=== PATIENT | female | born 1950 | race Caucasian/White ===

== ENCOUNTER 2018-05-07 14:50 | Outpatient (CLI) | payer MEDICARE ==
--- NOTE | 2018-05-07 16:38 | MRI ---
MRI RIGHT KNEE WITHOUT CONTRAST: Date: 05/07/18 INDICATION: History of right knee pain. COMPARISON: None. FINDINGS: There are marginal moderate osteophytes affecting all major compartments of the right knee. There is a subchondral impaction fracture involving the medial femoral condyle measuring 1.6 x 1.0 cm greatest mediolateral AP dimension respectively. There is a full thickness radial tear involving the posterio r central root of the medial meniscus with partial medial extrusion. The lateral meniscus is intact. The ACL, PCL, MCL, and LCLC are intact. The extensor mechanism is intact. There is a prominent area o f focal full thickness articular cartilage thinning involving the median patellar ridge measuring 1.1 cm on image 6 of series 4. There are multifocal areas of thinning involving the medial femoral troch danii. IMPRESSION: 1. Moderate osteoarthrosis of the right knee. 2. Subchondral impaction fracture of the medial femoral condyle. 3. Radial tear of the medial meniscus with partial medial extrusion. POS: CET
== END 2018-05-07 14:51 | disposition home or self-care (01) ==
LOC: BICMRI 14:50
PROVIDERS: ATTEND Orthopaedic Surgery
DX: M25.561 Pain in right knee (principal); M17.11 Unilateral primary osteoarthritis, right knee; S72.431A Displaced fracture of medial condyle of right femur, initial encounter for closed fracture; S83.241A Other tear of medial meniscus, current injury, right knee, initial encounter

== ENCOUNTER 2018-07-25 01:09 | Outpatient (CLI) | payer MEDICARE ==
[2018-07-25 11:38] LABS: #Basophils 0.1 thou/uL (0.0-0.2); #Eosinphils 0.2 thou/uL (0.0-0.7); #Lymphocytes 2.7 thou/uL (1.20-3.40); #Monocytes 0.6 thou/uL (0.11-0.59); %Basophils 0.8 % (0.0-1.0); %Eosinophils 3.4 % (0.0-10.0); %Lymphocytes 40.7 % (21.0-51.0); %Monocytes 8.9 % (0.0-10.0); %Neutrophils 46.3 % (42.0-75.0); Hemoglobin 12.9 g/dL (12.0-16.0); Mean Corpuscular HGB CONC 32.1 g/dL (32.0-36.0); Mean Corpuscular Hemoglobin 28.5 pg (27.0-31.0); Mean Corpuscular Volume 88.7 fL (78.0-98.0); Mean Platelet Volume 8.9 fL (7.4-10.4); Platelet Count 192 thou/uL (130-400); RBC Distribution Width 13.3 % (11.5-14.5); Red Blood Cell (RBC) Count 4.53 mill/uL (4.20-5.40); White Blood Cell (WBC) Count 6.6 thou/uL (4.8-10.8)
[2018-07-25 12:05] LABS: Anion Gap 10 mmol/L (10-20); BUN (Urea Nitrogen) 10 mg/dL (9.8-20.1); Calc. Creatinine Clearance 0 mL/min (70-130); Calcium 9.2 mg/dL (7.8-10.44); Carbon Dioxide 29 mmol/L (23-31); Chloride 101 mmol/L (98-107); Estimated GFR-MDRD 69; Glucose 93 mg/dL (80-115); Potassium 3.8 mmol/L (3.5-5.1); Sodium 136 mmol/L (136-145)
--- NOTE | 2018-07-25 16:52 | EKG ---
Test Reason : Blood Pressure : / mmHG Vent. Rate : 068 BPM Atrial Rate : 068 BPM P-R Int : 136 ms QRS Dur : 070 ms QT Int : 420 ms P-R-T Axes : 072 068 066 degrees QTc Int : 446 ms Normal sinus rhythm Normal ECG No previous ECGs available Confirmed by RAN VICENTE, DR. Anderson ([id number]) on 07/25/2018 4:51:39 PM Referred By: TANIA Confirmed By:DR. Monica TONG MD
== END 2018-07-25 01:10 | disposition home or self-care (01) ==
LOC: LABBT 01:09
PROVIDERS: ATTEND Orthopaedic Surgery
DX: Z01.818 Encounter for other preprocedural examination (principal); S83.241A Other tear of medial meniscus, current injury, right knee, initial encounter
CPT/HCPCS: 80048; 85025; 93005; 93010

== ENCOUNTER 2018-08-09 05:36 | Day surgery (SDC) | payer MEDICARE ==
[2018-07-25 10:53] VITALS: BMI 29.0
[2018-08-09] MEDS ORDERED: Bupivacaine HCl 0.5%/Epinephrine 1:200,000/PF 30 ml Vial ONE ×2 (06:39→09:40)
[2018-08-09] MEDS ORDERED: Midazolam HCl 2 mg/2 ml Vial ONE (06:48)
[2018-08-09] MEDS ORDERED: Fentanyl 100 MCG/2 ML VIAL ONE (08:19)
[2018-08-09] MEDS ORDERED: Lidocaine 2% w/Epinephrine 1:200K 20 ML VIAL ONE (09:40)
[2018-08-09] MEDS ORDERED: Ketorolac Tromethamine 30 MG/ML VIAL ONE (10:36)
[2018-08-09] MEDS ORDERED: Ondansetron PF 4 MG/2 ML Vial ONE (10:36)
[2018-08-09] MEDS ORDERED: PROPOFOL 200 MG/20 ML VIAL ONE (10:36)
--- NOTE | 2018-08-09 14:14 | OP ---
DATE OF PROCEDURE: 08/09/2018 PREOPERATIVE DIAGNOSIS: Medial meniscus tear, right knee. POSTOPERATIVE DIAGNOSIS: Medial and lateral meniscus tear, right knee. PROCEDURE PERFORMED: Arthroscopic partial medial and lateral meniscectomy. ANESTHESIA: General. ESTIMATED BLOOD LOSS: Minimal. SPECIMENS: None. DRAINS: None. COMPLICATIONS: None. DESCRIPTION OF PROCEDURE: The patient was taken to the operating room, where general anesthesia was induced. Right leg was prepped and draped in usual sterile fashion. The scope was placed in the lateral portal and probe was placed in the medial portal. Patellar joint and femoral joint were free of disease. Medial compartments had some mild degenerative changes and a large extensive tearing at most of the posterior horn of the medial meniscus. This was debrided using basket forceps and removed using 4.0 full radius resector. On the lateral compartment, a small tear of the free edge of lateral meniscus was debrided using basket forceps and smoothed using an arthroscopic shaver as well. ACL was intact. There was no arthritis in the lateral femur, but the lateral tibia had some fissures down to bone, grade 3. The knee was irrigated. The gutters were swept to make sure there were no loose bodies. The knee was then drained. Sterile dressings were applied. Job ID: [id number]
== END 2018-08-09 09:58 | disposition home or self-care (01) ==
LOC: SDC 05:36
PROVIDERS: ATTEND Orthopaedic Surgery
PROC: 0SQC4ZZ Repair Right Knee Joint, Percutaneous Endoscopic Approach (ICD-10-PCS; principal; 2018-08-09)
DX: S83.281A Other tear of lateral meniscus, current injury, right knee, initial encounter (principal); S83.241A Other tear of medial meniscus, current injury, right knee, initial encounter; M17.11 Unilateral primary osteoarthritis, right knee; Z79.899 Other long term (current) drug therapy; Z88.5 Allergy status to narcotic agent
CPT/HCPCS: J0670; J0690; J1885; J2250; J2405; J2704; J3010

== ENCOUNTER 2018-12-31 13:30 | Outpatient (CLI) | payer MEDICARE ==
--- NOTE | 2018-12-31 16:02 | MRI ---
MRI LEFT HIP WITHOUT CONTRAST: INDICATIONS: History of intractable left hip pain. COMPARISON: None. FINDINGS: There is a subchondral insufficiency fracture involving the anterior-superior aspect of the femoral h ead with surrounding marrow edema. There is moderate to severe degenerative arthrosis of the left hi p. There is a large subchondral cyst-like abnormality involving the anterior acetabulum. There is d egenerative fraying of the acetabular labrum with multiple small paralabral cysts seen along the supe rior and posterior-superior margin of the acetabulum lip. There is mild joint effusion involving the left hip joint. There is mild degenerative change of the contralateral right hip. No additional ma rrow signal abnormality is evident. The rectus femoris and hamstring origins appear within normal li mits. No trochanteric bursitis is evident. No iliopsoas bursitis is noted. There is mild muscular edema involving the adductor musculature, which may reflect a mild strain of the adductor musculature . no enlarged lymph nodes are evident. There is some slight heterogeneous material seen within the joint space, which may reflect synovial proliferation within the left hip joint. IMPRESSION: 1. Subchondral insufficiency fracture of the anterior-superior femoral head with surrounding marrow edema. 2. Moderate left hip osteoarthrosis with degenerative fraying of the acetabular labrum with paralabr al cysts. 3. Mild joint effusion of the left hip. 4. Mild degenerative changes of the right hip. 5. Mild muscular edema of the adductor musculature may reflect mild strain in the patient's attempt to compensate for the left hip pain. POS: OFF
== END 2018-12-31 13:31 | disposition home or self-care (01) ==
LOC: SCSMRI 13:30
PROVIDERS: ATTEND Orthopaedic Surgery
DX: M25.552 Pain in left hip (principal); M16.12 Unilateral primary osteoarthritis, left hip; M25.452 Effusion, left hip

== ENCOUNTER 2019-01-28 11:00 | Inpatient (IN) | payer MEDICARE ==
[2019-01-28 11:18] VITALS: BMI 29.0
[2019-02-05] MEDS ORDERED: Sodium Chloride 0.9% 100 ML ONE (06:52)
[2019-02-05] MEDS ORDERED: Tranexamic Acid 1,000 MG/10 ML VIAL ONE (06:52)
[2019-02-05] MEDS ORDERED: Acetaminophen 325 MG TAB PO PRN ×2 (07:09→08:39)
[2019-02-05] MEDS ORDERED: Zolpidem Tartrate 5 MG TAB PO PRN ×2 (07:09→08:45)
[2019-02-05] MEDS ORDERED: Fentanyl 100 MCG/2 ML VIAL SLOW IVP PRN ×2 (07:09)
[2019-02-05] MEDS ORDERED: diphenhydrAMINE 25 MG CAP PO PRN ×2 (07:09→08:45)
[2019-02-05] MEDS ORDERED: HYDROcodone/Acetaminophen 10/325 mg Tablet PO PRN ×2 (07:09)
[2019-02-05] MEDS ORDERED: Promethazine HCl 25 MG/ML VIAL IM PRN ×3 (07:09→10:06)
[2019-02-05] MEDS ORDERED: Ondansetron PF 4 MG/2 ML Vial IVP PRN ×2 (07:09→08:45)
[2019-02-05] MEDS ORDERED: Fentanyl 100 MCG/2 ML VIAL ONE ×5 (07:14→11:35)
[2019-02-05] MEDS ORDERED: Midazolam HCl 2 mg/2 ml Vial ONE (07:14)
[2019-02-05] MEDS ORDERED: Vancomycin HCl 1.5 GM in Sodium Chloride 0.9% 250 ML 300 ML IVPB SCH (07:15)
[2019-02-05] MEDS ORDERED: Lidocaine 1.5% w/Epi 1:200K 30 ML VIAL (Epid Use) ONE (07:51)
[2019-02-05] MEDS ORDERED: Naloxone HCl 0.4 mg/ml Vial IVP PRN (08:45)
[2019-02-05] MEDS ORDERED: Naloxone HCl 0.4 mg/ml Vial IV PRN (08:45)
[2019-02-05] MEDS ORDERED: traMADol HCl 50 MG TAB PO PRN ×2 (08:45)
[2019-02-05] MEDS ORDERED: Hydrocerin (Eucerin) Cream 120 gm Jar TOP PRN (08:45)
[2019-02-05] MEDS ORDERED: diphenhydrAMINE 50 MG/ML VIAL IM PRN (08:45)
[2019-02-05] MEDS ORDERED: Ketorolac Tromethamine 30 MG/ML VIAL IVP PRN (08:45)
[2019-02-05] MEDS ORDERED: Bupivacaine 0.25% 10 ML VIAL EPIDURAL PRN (08:45)
[2019-02-05] MEDS ORDERED: diphenhydrAMINE 50 MG/ML VIAL IVP PRN (08:45)
[2019-02-05] MEDS ORDERED: HYDROcodone/Acetaminophen 5/325 mg Tablet PO PRN (08:45)
[2019-02-05] MEDS ORDERED: Promethazine HCl 25 MG SUPP PR PRN (08:45)
[2019-02-05] MEDS ORDERED: Non-Formulary Item 1 EACH (Multivitamin [Multi-Vitamin Daily] 1 TABLET) PO SCH (09:00)
[2019-02-05] MEDS ORDERED: PACU-Morphine 4MG/ML VIAL SLOW IVP PRN (10:06)
[2019-02-05] MEDS ORDERED: Ondansetron HCl/PF 4 MG/2 ML Vial IVP PRN (10:06)
[2019-02-05] MEDS ORDERED: Promethazine HCl 25 MG/ML VIAL SLOW IVP PRN (10:06)
[2019-02-05] MEDS ORDERED: HYDROmorphone 2 MG/ML VIAL SLOW IVP PRN (10:06)
[2019-02-05] MEDS ORDERED: Sodium Chloride For Inhalation 0.9% 3 ML NEB ONE (10:43)
[2019-02-05] MEDS ORDERED: Bupivacaine 0.25% HCL 30 ML VIAL ONE (11:38)
--- NOTE | 2019-02-05 12:28 | RAD ---
Exam: XR Hip Lt 2-3 View HISTORY: Postop left total hip replacement. COMPARISON: None FINDINGS: There is evidence of a left total hip prosthesis. No hardware complication is seen. There is no fract ure or dislocation identified. Subcutaneous emphysema is seen at the lateral aspect of the left hip. IMPRESSION: Postoperative changes related to recent placement of left total hip prosthesis.
[2019-02-05] MEDS ORDERED: Ketorolac Tromethamine 30 MG/ML VIAL IM SCH (14:00)
[2019-02-05] MEDS: Aspirin 81 mg Enteric Coated Tablet PO SCH ×2 (14:40→21:05)
[2019-02-05] MEDS: Sodium Chloride 0.9% 1,000 ML IV SCH ×3 (14:40→22:09)
[2019-02-05] MEDS: CEFAZOLIN 2 GM in Premix Bag 1 BAG IVPB SCH ×2 (14:59→22:09)
--- NOTE | 2019-02-05 15:21 | OP ---
DATE OF PROCEDURE: 02/05/2019 PREOPERATIVE DIAGNOSIS: Degenerative joint disease, left hip. POSTOPERATIVE DIAGNOSIS: Degenerative joint disease, left hip. PROCEDURE PERFORMED: Left total hip arthroplasty using a Yury Accolade II #6 stem, 50 mm PSL cup and a 36 degree liner with a ceramic head. TEACHER LIP READING: Kedar Bertrand PA-C ANESTHESIA: General. ESTIMATED BLOOD LOSS: 200. SPECIMENS: None. DRAINS: None. COMPLICATIONS: None. PROCEDURE IN DETAIL: After informed consent was obtained in the preoperative holding area, the patient was taken to the operative suite where general anesthesia was induced. The patient was then positioned in the lateral decubitus position. The hip was then prepped and draped in usual sterile fashion. The patient received preoperative antibiotics. Prior to incision, time-out was called and all members of the surgical team agreed upon site, surgeon, and patient. After this, a longitudinal incision was made directly over the trochanter, noted by palpation extending 2 fingerbreadths above and below the trochanter. The deeper subcutaneous layer was undermined with Bovie electrocautery. The iliotibial band was encountered and incised sharply and the plane below this was developed bluntly. A Charnley retractor was placed to hold this opened. The lateral aspect of the trochanter and the abductor muscles were encountered and then reflected anteriorly off the trochanter using Bovie electrocautery. Once this was completed, the anterior capsule was then encountered and identified and copious capsulotomy was carried out, exposing the femoral neck and head. Dislocation maneuver was then performed and an in situ provisional neck cut was then made using the oscillating saw. Attention was then turned to acetabular preparation and sequential reaming was carried out up to the appropriate diameter. A trial was then malleted into place with good firm resistance and no pullout. The permanent acetabular shell was then malleted squarely into place, as was the appropriate liner. Once completed, the wound was copiously irrigated and attention was then turned to femoral preparation. Flexion and external rotation were performed of the exposed thigh and femoral elevators were then placed at the proximal aspect of the wound. Canal finder was used to establish the length of the canal and sequential reaming was carried out, followed by broaching. Once the appropriate stability was established with the trial broaches with flexion, extension and rotational stability, we did trial with neutral and 2 mm offset incremental necks. Once the appropriate size was decided upon, with good stability noted with flexion, extension, internal and external rotation and shuck being negative, we removed the femoral trial broach and malletted into place the permanent prosthesis with good firm fit, which was also stable to rotation. Again, the hip felt very stable to flexion, extension, internal and external rotation. Leg lengths appeared near anatomic clinically and we were quite happy with prosthesis placement. Copious irrigation was then carried out through the entirety of the wound. Primary closure of the abductors was accomplished with interrupted #2 Vicryl [id number] stitches and the IT band was then closed with interrupted #2 Vicryl, oversewn with a #2 running barbed Quill stitch. Subcutaneous fascia was closed with running barbed Quill stitch and a subcuticular Monocryl barbed Quill stitch was used for skin closure and augmented with skin cement. A sterile dressing was applied. The procedure was terminated without any complication. All counts were correct. The patient was awakened in the operative suite and taken to the recovery room in stable condition. Job ID: [id number]
[2019-02-05] MEDS: Phenazopyridine HCl 97.5 MG TABLET PO SCH (17:08)
[2019-02-05] MEDS: Citalopram 10 MG TAB PO SCH (21:05)
[2019-02-05] MEDS: Atorvastatin Calcium 20 MG TAB PO SCH (21:05)
[2019-02-05] MEDS: Calcium Carbonate 500 MG ChewTAB PO PRN (22:09)
[2019-02-06] MEDS: HYDROcodone/Acetaminophen 5/325 mg Tablet PO PRN ×5 (01:15→21:29)
[2019-02-06] MEDS: fentaNYL Citrate/PF 500 MCG, Bupivacaine 10 ML in Sodium Chloride 0.9% 80 ML EPIDURAL SCH ×2 (01:33→17:22)
[2019-02-06 05:40] LABS: Hemoglobin 9.5 g/dL (12.0-16.0); Mean Corpuscular HGB CONC 33.7 g/dL (32.0-36.0); Mean Corpuscular Hemoglobin 29.8 pg (27.0-31.0); Mean Corpuscular Volume 88.4 fL (78.0-98.0); Mean Platelet Volume 8.4 fL (7.4-10.4); Platelet Count 150 thou/uL (130-400); RBC Distribution Width 14.2 % (11.5-14.5); Red Blood Cell (RBC) Count 3.19 mill/uL (4.20-5.40); White Blood Cell (WBC) Count 14.4 thou/uL (4.8-10.8)
--- NOTE | 2019-02-06 08:02 | CON ---
DATE OF CONSULTATION: REASON FOR CONSULTATION: Consultation from Dr. Osullivan for postoperative medical management. HISTORY OF PRESENT ILLNESS: The patient is a 68-year-old female with a history of problems in her right knee requiring arthroscopic surgery. She subsequently was trying to accommodate that when by avoiding bending her knee when that caused her to fall off her porch and ultimately resulted in a fracture of the hip requiring surgery. She is currently postop from the surgical procedure, and her primary problem as of now is that she is having significant discomfort with her urinary bladder causing her the sensation of needing to void, but the inability to specifically do so. Otherwise, she is not having significant pain. PAST MEDICAL HISTORY: Notable for some gastroesophageal reflux and hyperlipidemia. She has some minor chronic back problems as well. FAMILY HISTORY: Father of an [place] at 42. Her mother with Alzheimer disease. SOCIAL HISTORY: She is a nonsmoker, nondrinker, and nondrug user. She is . ALLERGIES: CODEINE. CURRENT MEDICATIONS: 1. Celexa 10 mg one p.o. daily. 2. Nexium 20 mg p.o. daily. 3. Multivitamin one p.o. daily. 4. Simvastatin 40 mg q.h.s. 5. Vicodin p.r.n. PHYSICAL EXAMINATION: VITAL SIGNS: No vital signs have been documented as of yet. GENERAL: She is awake and alert. HEENT: PERRL. No OP lesions. Moist oral mucosa. NECK: Supple and symmetric. HEART: Regular rate and rhythm without murmurs. LUNGS: Clear bilaterally. ABDOMEN: Soft, nontender, and nondistended. EXTREMITIES: Warm and dry with good posterior tibial pulses bilaterally. IMPRESSION AND PLAN: 1. Postop hip surgery, per Ortho protocol. 2. Bladder spasms with some related pain. I will see if the surgical team would be okay with providing some bladder anesthetic or antispasmodic such as phenazopyridine. I do not want to remove the Headley catheter for fear of the potential urinary retention with her block. 3. Hyperlipidemia. Continue with her usual home simvastatin which she is currently on. 4. Gastroesophageal reflux disease. Continue with pantoprazole. 5. Continue with her other usual home medications including citalopram. Job ID: [id number] [facility]
[2019-02-06] MEDS: Calcium Carbonate 500 MG ChewTAB PO PRN (08:11)
[2019-02-06] MEDS: Phenazopyridine HCl 97.5 MG TABLET PO SCH ×3 (08:11→17:14)
[2019-02-06] MEDS: Aspirin 81 mg Enteric Coated Tablet PO SCH ×2 (08:12→19:45)
[2019-02-06] MEDS: Multivitamin W/ Minerals 1 TAB PO SCH (08:12)
[2019-02-06] MEDS: Senokot S 8.6-50 MG TAB PO SCH ×2 (08:12→19:45)
[2019-02-06] MEDS: Ferrous Gluconate 324 MG TAB PO SCH ×2 (08:12→17:14)
[2019-02-06] MEDS: Sodium Chloride 0.9% 1,000 ML IV SCH ×2 (10:38→23:21)
--- NOTE | 2019-02-06 13:59 | PRG ---
DATE OF SERVICE: 02/06/2019 SUBJECTIVE: Micaela is a 68-year-old female, postop day 1 from left total hip arthroplasty. She is doing well. She has no complaints of pain. Her epidurals were working very well. OBJECTIVE: VITAL SIGNS: Temperature 98.5, pulse 78, respiratory rate 16, and blood pressure is 111/67. GENERAL: She is alert and oriented to person, place, time, and situation. NEUROLOGIC: Grossly nonfocal, responsive and appropriate with examiner. MUSCULOSKELETAL: Incision is clean and closed. No malrotation. No erythema. No strike through. No shortening of the extremity, and she is neurovascularly intact in the left lower extremity. LABORATORY DATA: Hemoglobin and hematocrit are 9.5 and 28.2. IMPRESSION: A 68-year-old female, postop day 1, left total hip arthroplasty, doing well. PLAN: Postoperative hemorrhagic anemia, asymptomatic. Continue current care. Probable discharge home tomorrow or Monday. Job ID: [id number]
[2019-02-06] MEDS: Citalopram 10 MG TAB PO SCH (19:45)
[2019-02-06] MEDS: Atorvastatin Calcium 20 MG TAB PO SCH (19:46)
--- NOTE | 2019-02-06 22:31 | PDOC.HOSPP ---
- Subjective Subjective: Doing well. Still has the sense that she needs to void all the time, but the meds have helped. No pain. - Objective Vital Signs & Weight: Vital Signs (12 hours) Temp Pulse Resp BP BP Pulse Ox 02/06/19 21:04 100 02/06/19 19:52 98.3 F 81 18 112/66 100 02/06/19 14:51 98.3 F 89 16 119/67 96 02/06/19 12:59 98.5 F 78 16 111/67 98 Weight Admit Weight 180 lb Weight 180 lb I&O: 02/05/19 02/06/19 02/07/19 06:59 06:59 06:59 Intake Total 2735 1680 Output Total 1450 650 Balance 1285 1030 Result Diagrams: 02/06/19 05:27 Hospitalist ROS - Medication Medications: Active Medications Generic Name Dose Route Start Last Admin Trade Name Freq PRN Reason Stop Dose Admin Acetaminophen 650 mg 02/05/19 07:09 02/05/19 23:29 Tylenol PO 650 mg Q4H PRN Administration Headache/Fever or Pain Hydrocodone Bitart/Acetaminophen 2 tab 02/05/19 08:45 02/06/19 21:29 [place] 5/325 PO 2 tab Q4H PRN Administration For Moderate Pain 4-6 Aspirin 81 mg 02/05/19 09:00 02/06/19 19:45 Ecotrin PO 81 mg BID JEZ Administration Atorvastatin Calcium 20 mg 02/05/19 21:00 02/06/19 19:46 Lipitor PO 20 mg HS JEZ Administration Calcium Carbonate 500 mg 02/05/19 22:06 02/06/19 08:11 Tums PO 500 mg Q4H PRN Administration INDIGESTION Citalopram Hydrobromide 10 mg 02/05/19 21:00 02/06/19 19:45 Celexa PO 10 mg HS JEZ Administration Ferrous Gluconate 324 mg 02/06/19 08:00 02/06/19 17:14 Fergon PO 324 mg BID-WM JEZ Administration Sodium Chloride 1,000 mls @ 100 mls/hr 02/05/19 07:15 02/06/19 10:38 Normal Saline 0.9% IV Not Given .Q10H JEZ Fentanyl Citrate 500 mcg/ 100 mls @ 6 mls/hr 02/05/19 08:45 02/06/19 17:22 Bupivacaine HCl 10 ml/ Sodium EPIDURAL 100 mls Chloride INF JEZ Administration Iron/Minerals/Multivitamins 1 tab 02/06/19 09:00 02/06/19 08:12 Theragran M PO 1 tab DAILY JEZ Administration Ketorolac Tromethamine 15 mg 02/05/19 08:45 02/05/19 17:09 Toradol IVP 02/08/19 08:46 15 mg Q6H PRN Administration Moderate Pain (4-6) Ondansetron HCl 4 mg 02/05/19 08:45 02/06/19 03:19 Zofran IVP 4 mg Q6H PRN Administration Nausea/Vomiting Pantoprazole Sodium 40 mg 02/05/19 21:00 02/06/19 19:46 Protonix PO 40 mg HS JEZ Administration Phenazopyridine HCl 97.5 mg 02/05/19 18:00 02/06/19 17:14 Azo Standard PO 97.5 mg PC JEZ Administration Senna/Docusate Sodium 2 tab 02/06/19 09:00 02/06/19 19:45 Senokot S PO 2 tab BID JEZ Administration - Exam General Appearance: NAD Heart: RRR, no murmur, no gallops, no rubs, normal peripheral pulses Respiratory: CTAB, no wheezes, no rales, no ronchi, normal chest expansion, no tachypnea, normal percussion Gastrointestinal: soft, non-tender, non-distended, normal bowel sounds, no palpable masses, no hepatomegaly, no splenomegaly, no bruit Skin: normal turgor Musculoskeletal: normal tone Psychiatric: normal affect, normal behavior, A&O x 3 Hosp A/P (1) S/P hip replacement Code(s): Z96.649 - PRESENCE OF UNSPECIFIED ARTIFICIAL HIP JOINT Status: Acute (2) Bladder spasm Status: Acute (3) HLD (hyperlipidemia) Code(s): E78.5 - HYPERLIPIDEMIA, UNSPECIFIED Status: Acute (4) GERD (gastroesophageal reflux disease) Code(s): K21.9 - GASTRO-ESOPHAGEAL REFLUX DISEASE WITHOUT ESOPHAGITIS Status: Acute - Plan Doing very well. Continue rehab per ortho. Continue home meds. Phenazopyridine.
[2019-02-07] MEDS: Calcium Carbonate 500 MG ChewTAB PO PRN (05:44)
[2019-02-07 06:25] LABS: Hemoglobin 9.1 g/dL (12.0-16.0); Mean Corpuscular HGB CONC 32.7 g/dL (32.0-36.0); Mean Corpuscular Hemoglobin 29.7 pg (27.0-31.0); Mean Corpuscular Volume 90.8 fL (78.0-98.0); Mean Platelet Volume 9.1 fL (7.4-10.4); Platelet Count 144 thou/uL (130-400); RBC Distribution Width 14.4 % (11.5-14.5); Red Blood Cell (RBC) Count 3.05 mill/uL (4.20-5.40); White Blood Cell (WBC) Count 11.8 thou/uL (4.8-10.8)
[2019-02-07] MEDS: Aspirin 81 mg Enteric Coated Tablet PO SCH (08:49)
[2019-02-07] MEDS: Ferrous Gluconate 324 MG TAB PO SCH (08:49)
[2019-02-07] MEDS: Multivitamin W/ Minerals 1 TAB PO SCH (08:49)
[2019-02-07] MEDS: Phenazopyridine HCl 97.5 MG TABLET PO SCH ×2 (08:50→13:22)
[2019-02-07] MEDS: Senokot S 8.6-50 MG TAB PO SCH (08:50)
[2019-02-07] MEDS: HYDROcodone/Acetaminophen 5/325 mg Tablet PO PRN (08:51)
[2019-02-07] MEDS ORDERED: HYDROcodone/Acetaminophen 10/325 mg Tablet PO PRN ×2 (10:51)
[2019-02-07 15:32] VITALS: BP 113/57; TEMP 98.8
== END 2019-02-07 15:15 | disposition home or self-care (01) | DRG 470 ==
LOC: SURG A 02-05 06:17
PROVIDERS: ADMIT Orthopaedic Surgery; ATTEND Orthopaedic Surgery
PROC: 0SRB049 Replacement of Left Hip Joint with Ceramic on Polyethylene Synthetic Substitute, Cemented, Open Approach (ICD-10-PCS; principal; 2019-02-05)
DX: M16.12 Unilateral primary osteoarthritis, left hip (principal); K21.9 Gastro-esophageal reflux disease without esophagitis; E78.5 Hyperlipidemia, unspecified; N32.89 Other specified disorders of bladder; D64.9 Anemia, unspecified; Z88.8 Allergy status to other drugs, medicaments and biological substances
CPT/HCPCS: 36415; 85027; J0690; J1885; J2001; J2250; J2405; J3010; J3490; S0020

== ENCOUNTER 2019-01-28 11:03 | Outpatient (CLI) | payer MEDICARE ==
[2019-01-28 12:50] LABS: #Basophils 0.1 thou/uL (0.0-0.2); #Eosinphils 0.5 thou/uL (0.0-0.7); #Lymphocytes 3.6 thou/uL (1.20-3.40); #Neutrophils 4.6 thou/uL (1.40-6.50); %Basophils 0.8 % (0.0-1.0); %Monocytes 9.8 % (0.0-10.0); %Neutrophils 47.4 % (42.0-75.0); Hemoglobin 12.8 g/dL (12.0-16.0); Mean Corpuscular HGB CONC 31.9 g/dL (32.0-36.0); Mean Corpuscular Hemoglobin 28.4 pg (27.0-31.0); Mean Corpuscular Volume 88.9 fL (78.0-98.0); Mean Platelet Volume 9.1 fL (7.4-10.4); Platelet Count 209 thou/uL (130-400); RBC Distribution Width 14.8 % (11.5-14.5); White Blood Cell (WBC) Count 9.7 thou/uL (4.8-10.8)
[2019-01-28 12:55] LABS: Prothrombin Time 12.7 SEC (12.0-14.7)
[2019-01-28 13:11] LABS: Anion Gap 13 mmol/L (10-20); BUN (Urea Nitrogen) 13 mg/dL (9.8-20.1); Calc. Creatinine Clearance 0 mL/min (70-130); Carbon Dioxide 26 mmol/L (23-31); Chloride 102 mmol/L (98-107); Estimated GFR-MDRD 67; Glucose 78 mg/dL (80-115); Potassium 3.5 mmol/L (3.5-5.1); Sodium 137 mmol/L (136-145)
== END 2019-01-28 11:04 | disposition home or self-care (01) ==
LOC: LABBT 11:03
PROVIDERS: ATTEND Orthopaedic Surgery
DX: Z01.818 Encounter for other preprocedural examination (principal); M16.12 Unilateral primary osteoarthritis, left hip
CPT/HCPCS: 80048; 85025; 85610; 87081; 93005; 93010

== ENCOUNTER 2019-08-19 12:49 | Outpatient (CLI) | payer MEDICARE ==
--- NOTE | 2019-08-28 08:57 | MMO ---
Bilateral MAMMO Bilat Screen [facility]. CLINICAL HISTORY: Patient is 68 years old and is seen for screening. The patient has no family history of breast cancer. The patient has no personal history of cancer. The patient has a history of right Excisional Biopsy more than 10 years ago - benign. VIEWS: The views performed were: bilateral craniocaudal with tomosynthesis; bilateral mediolateral oblique with tomosynthesis; and right craniocaudal. FILMS COMPARED: The present examination has been compared to prior imaging studies performed at [facility] on 07/07/2015, 08/14/2015 and 08/24/2015. This study has been interpreted with the assistance of computer-aided detection. MAMMOGRAM FINDINGS: There are scattered fibroglandular densities. Benign calcifications are noted bilaterally. There are stable RIGHT SIDED post-operative changes. There are no suspicious masses, suspicious calcifications, or new areas of architectural distortion. IMPRESSION: THERE IS NO MAMMOGRAPHIC EVIDENCE OF MALIGNANCY. A ROUTINE FOLLOW-UP MAMMOGRAM IN 1 YEAR IS RECOMMENDED. THE RESULTS OF THIS EXAM WERE SENT TO THE PATIENT. ACR BI-RADS Category 2 - Benign finding MAMMOGRAPHY NOTE: 1. A negative mammogram report should not delay a biopsy if a dominant of clinically suspicious mass is present. 2. Approximately 10% to 15% of breast cancers are not detected by mammography. 3. Adenosis and dense breasts may obscure an underlying neoplasm. Reported by: HEATHER LAWRENCE MD Electonically Signed: [id number]
== END 2019-08-19 12:50 | disposition home or self-care (01) ==
LOC: BICMAMMO 12:49
PROVIDERS: ATTEND Family Medicine
DX: Z12.31 Encounter for screening mammogram for malignant neoplasm of breast (principal); Z91.89 Other specified personal risk factors, not elsewhere classified
CPT/HCPCS: 77063; 77067

== ENCOUNTER 2019-09-30 08:58 | Outpatient (CLI) | payer MEDICARE ==
--- NOTE | 2019-09-30 15:01 | BD ---
DEXA BONE DENSITY SCAN: DATE: 09/30/2019. COMPARISON: None. HISTORY: Postmenopausal female undergoing screening for osteoporosis. FINDINGS: Lumbar Spine: BMD (g/cm2) L1 0.656 T-Score: -3.0 L2 0.722 T-Score: -2.8 L3 0.693 T-Score: -3.6 L4 0.651 T-Score: -3.7 L1-L4 0.683 T-Score: -3.3 Femoral Neck: 0.585 T-Score: -2.4 Total Femur: 0.664 T-Score: -2.3 The FRAX-WHO fracture risk assessment tool is not reported as some T-scores are at or below -2.5. Impression: Diffuse lumbar spine osteoporosis correlating with a high associated risk for fracture. There is ost eopenia within the femoral neck. POS: PETER
== END 2019-09-30 08:59 | disposition home or self-care (01) ==
LOC: BICMAMMO 08:58
PROVIDERS: ATTEND Family Medicine
DX: Z13.820 Encounter for screening for osteoporosis (principal); Z78.0 Asymptomatic menopausal state; M81.0 Age-related osteoporosis without current pathological fracture; M85.859 Other specified disorders of bone density and structure, unspecified thigh
CPT/HCPCS: 77080

== ENCOUNTER 2021-02-12 08:50 | Outpatient (CLI) | payer MEDICARE | END 2021-02-12 08:51 | disposition home or self-care (01) | LOC: BICMRI 08:50 | PROVIDERS: ATTEND Anesthesiology Pain Medicine | DX: M51.14 Intervertebral disc disorders with radiculopathy, thoracic region (principal) | CPT/HCPCS: 72146 ==

== ENCOUNTER 2021-05-10 08:30 | Outpatient (CLI) | payer MEDICARE | END 2021-05-10 08:31 | disposition home or self-care (01) | LOC: NM 08:30 | PROVIDERS: ATTEND Nurse Practitioner Family | DX: G58.8 Other specified mononeuropathies (principal) | CPT/HCPCS: 78306; A9503 ==

== ENCOUNTER 2025-01-23 11:21 | Outpatient (CLI) | payer MEDICARE | END 2025-01-23 11:22 | disposition home or self-care (01) | LOC: SCSBT 11:21 | PROVIDERS: ATTEND Internal Medicine Rheumatology | DX: M81.0 Age-related osteoporosis without current pathological fracture (principal) | CPT/HCPCS: 77080 ==